=== PATIENT | female | born 1980 | race Caucasian/White ===

== ENCOUNTER 2022-12-22 04:59 | Emergency (ER) | payer OTHER, SELFPAY ==
[~2022-12-22] VITALS: Ht 152.4 cm; Wt 93.0 kg
[2022-12-22] MEDS ORDERED: ACETAMINOPHEN TAB 650MG DOSE (2X325MG) PO ONE (05:30)
[2022-12-22] MEDS ORDERED: IPRATROPIUM 0.5MG/ALBUTEROL 2.5MG INH SOL UD 3ML (DUONEB) NEB ONE (06:35)
[2022-12-22 07:05] LABS: BASO # 0.1 10^3/uL (0.0-0.2); BASO % 0.2 % (0.0-1.0); HEMATOCRIT 42.9 % (36.0-47.0); HEMOGLOBIN 14.3 g/dl (12.0-15.5); LYMPH # 1.9 10^3/uL (1.5-5.0); LYMPH % 8.4 % (24.0-44.0); MEAN CORPUSCULAR HEMOGLOBIN 28.4 pg (27.0-33.0); MEAN CORPUSCULAR HGB CONC 33.3 g/dl (32.0-36.5); MEAN CORPUSCULAR VOLUME 85.1 fl (80.0-96.0); MONO # 1.2 10^3/uL (0.0-0.8); MONO % 5.5 % (2.0-8.0); NEUTROPHILS # 19.2 10^3/uL (1.5-8.5); NEUTROPHILS % 85.1 % (36.0-66.0); RED BLOOD COUNT 5.04 10^6/uL (4.00-5.40); WHITE BLOOD COUNT 22.6 10^3/uL (4.0-10.0)
[2022-12-22 07:24] LABS: PLATELET COUNT, AUTOMATED 43 10^3/uL (150-450)
[2022-12-22 07:32] LABS: BARBITURATES URINE NEGATIVE (NEGATIVE); BENZODIAZEPINES URINE NEGATIVE (NEGATIVE); CANNABINOIDS URINE NEGATIVE (NEGATIVE); COCAINE METABOLITE URINE NEGATIVE (NEGATIVE); METHADONE URINE NEGATIVE (NEGATIVE); OPIATES URINE NEGATIVE (NEGATIVE); PHENCYCLIDINE URINE NEGATIVE (NEGATIVE)
[2022-12-22 07:34] LABS: ETHYL ALCOHOL (ETHANOL) < 0.003 % (0.000-0.010)
[2022-12-22 07:36] LABS: ALBUMIN 3.6 G/DL (3.2-5.2); ALKALINE PHOSPHATASE 89 U/L (46-116); ALT/SGPT 23 U/L (7.0-40); AST/SGOT 26 U/L (<34); BILIRUBIN,DIRECT 0.3 MG/DL (<0.4); BILIRUBIN,TOTAL 0.8 MG/DL (0.3-1.2); BLOOD UREA NITROGEN 26 MG/DL (9-23); CALCIUM LEVEL 9.6 MG/DL (8.5-10.1); CARBON DIOXIDE LEVEL 22 MMOL/L (20-31); CHLORIDE LEVEL 99 MMOL/L (98-107); CPK CREATINE PHOSPHOKINASE 126 U/L (34-145); CREATININE FOR GFR 1.54 MG/DL (0.55-1.30); GLOMERULAR FILTRATION RATE 39.3 (>58); GLUCOSE, FASTING 114 MG/DL (60-100); SALICYLATE LEVEL < 3.0 MG/DL (<30); SODIUM LEVEL 129 MMOL/L (136-145); TOTAL PROTEIN 8.6 G/DL (5.7-8.2)
[2022-12-22 07:39] LABS: THYROID STIMULATING HORMONE 2.165 uIU/ML (0.55-4.78)
[2022-12-22 07:40] LABS: HCG, SERUM QUALITATIVE NEGATIVE (NEGATIVE)
[2022-12-22 07:41] LABS: AMPHETAMINES LEVEL URINE POSITIVE (NEGATIVE)
[2022-12-22] MEDS ORDERED: NS 1,000 ML IV SCH (09:10)
[2022-12-22 15:15] LABS: GC DNA AMPLIFICATION NEGATIVE (NEGATIVE)
[2022-12-22] MEDS ORDERED: NITROFURANTOIN (MACROBID) 100 MG CAP PO ONE (15:20)
[2022-12-22] MEDS ORDERED: NITR1CAP11 PO (15:23)
[2022-12-22 15:35] VITALS: BP 111/74; TEMP 98.6; O2SAT 97
== END 2022-12-22 15:47 | disposition home or self-care (01) ==
LOC: M ED 04:59 → EDBD 04:59 → M ED 15:47
DX: N39.0 Urinary tract infection, site not specified (principal); J06.9 Acute upper respiratory infection, unspecified; F19.10 Other psychoactive substance abuse, uncomplicated; B20 Human immunodeficiency virus [HIV] disease; B19.10 Unspecified viral hepatitis B without hepatic coma; B19.20 Unspecified viral hepatitis C without hepatic coma; F17.200 Nicotine dependence, unspecified, uncomplicated; Z88.0 Allergy status to penicillin

== ENCOUNTER 2023-01-15 20:04 | Emergency (ER) | payer SELFPAY ==
[~2023-01-15] VITALS: Ht 165.1 cm; Wt 89.2 kg
[~2023-01-15 20:04] MED LIST: NITR1CAP11 PO
[2023-01-15 21:11] LABS: HEMATOCRIT 41.6 % (36.0-47.0); HEMOGLOBIN 13.3 g/dl (12.0-15.5); MEAN CORPUSCULAR HEMOGLOBIN 27.9 pg (27.0-33.0); MEAN CORPUSCULAR VOLUME 87.4 fl (80.0-96.0); RED BLOOD COUNT 4.76 10^6/uL (4.00-5.40); WHITE BLOOD COUNT 4.3 10^3/uL (4.0-10.0)
[2023-01-15 21:14] LABS: PLATELET COUNT, AUTOMATED 36 10^3/uL (150-450)
[2023-01-15 21:26] LABS: ATYPICAL LYMPH 5 % (0-5); BASOPHILS 1 % (0-1); EOSINOPHILS 1 % (0-3); LYMPHOCYTES 13 % (16-44); MONOCYTES 7 % (0-5); NEUTROPHILS 73 % (28-66); PLATELET ESTIMATE NORMAL (NORMAL)
[2023-01-15 21:28] LABS: ERYTHROCYTE SEDIMENTATION RATE 103 mm/hr (0-20)
[2023-01-15 21:29] LABS: BLOOD UREA NITROGEN 10 MG/DL (9-23); CALCIUM LEVEL 9.3 MG/DL (8.5-10.1); CARBON DIOXIDE LEVEL 26 MMOL/L (20-31); CHLORIDE LEVEL 103 MMOL/L (98-107); CREATININE FOR GFR 1.12 MG/DL (0.55-1.30); GLOMERULAR FILTRATION RATE 56.8 (>58); GLUCOSE, FASTING 128 MG/DL (60-100); POTASSIUM SERUM 3.8 MMOL/L (3.5-5.1); SODIUM LEVEL 138 MMOL/L (136-145)
[2023-01-16 00:03] VITALS: TEMP 98.8
[2023-01-16 03:13] LABS: HEPATITIS B SURFACE ANTIGEN NEGATIVE (NEGATIVE)
[2023-01-16 03:33] LABS: HEPATITIS B CORE ANTIBODY IGM NEGATIVE (NEGATIVE)
[2023-01-16 04:33] VITALS: O2SAT 100
[2023-01-16 04:51] VITALS: BP 145/96
[2023-01-16 05:23] LABS: APPEARANCE, URINE HAZY (CLEAR); BACTERIA, URINE AUTO 1+ (NEGATIVE); BILIRUBIN, URINE AUTO NEGATIVE (NEGATIVE); BLOOD, URINE BLOOD NEGATIVE (NEGATIVE); COLOR, URINE YELLOW (YELLOW); GLUCOSE, URINE (UA) AUTO NEGATIVE (NEGATIVE); KETONE, URINE AUTO NEGATIVE (NEGATIVE); LEUKOCYTE ESTERASE, URINE AUTO NEGATIVE (NEGATIVE); MUCUS, URINE SMALL (NEGATIVE); NITRITE, URINE AUTO POSITIVE (NEGATIVE); PROTEIN, URINE AUTO 1+ mg/dL (NEGATIVE); RBC, URINE AUTO 1 /HPF (0-3); SPECIFIC GRAVITY URINE AUTO 1.018 (1.002-1.035); SQUAMOUS EPITHELIAL CELL UR AU 4 /HPF (0-6); UROBILINOGEN, URINE AUTO 0.2 mg/dL (0.0-2.0); WBC, URINE AUTO 3 /HPF (0-3)
[2023-01-16 05:59] LABS: BARBITURATES URINE NEGATIVE (NEGATIVE)
[2023-01-16 06:00] LABS: BENZODIAZEPINES URINE NEGATIVE (NEGATIVE); CANNABINOIDS URINE NEGATIVE (NEGATIVE); COCAINE METABOLITE URINE NEGATIVE (NEGATIVE); METHADONE URINE NEGATIVE (NEGATIVE); OPIATES URINE NEGATIVE (NEGATIVE); PHENCYCLIDINE URINE NEGATIVE (NEGATIVE)
[2023-01-16 06:03] LABS: AMPHETAMINES LEVEL URINE POSITIVE (NEGATIVE)
[2023-01-16 12:04] LABS: HEPATITIS C VIRUS ABY INDEX > 11.00 INDEX (<0.8)
== END 2023-01-16 06:26 | disposition home or self-care (01) ==
LOC: M ED 20:04
DX: D69.6 Thrombocytopenia, unspecified (principal); B20 Human immunodeficiency virus [HIV] disease; Z88.0 Allergy status to penicillin

== ENCOUNTER 2023-01-29 00:53 | Emergency (ER) | payer MEDICAID, SELFPAY ==
[~2023-01-29] VITALS: Ht 165.1 cm; Wt 87.0 kg
[2023-01-29 00:54] VITALS: TEMP 98.7
[2023-01-29 08:18] VITALS: BP 136/85; O2SAT 98
== END 2023-01-29 08:30 | disposition home or self-care (01) ==
LOC: M ED 00:53
DX: T74.11XA Adult physical abuse, confirmed, initial encounter (principal); Y04.0XXA Assault by unarmed brawl or fight, initial encounter; Y92.009 Unspecified place in unspecified non-institutional (private) residence as the place of occurrence of the external cause; Y93.89 Activity, other specified; Y99.8 Other external cause status; D69.6 Thrombocytopenia, unspecified; B20 Human immunodeficiency virus [HIV] disease; F19.10 Other psychoactive substance abuse, uncomplicated; B19.20 Unspecified viral hepatitis C without hepatic coma; F17.200 Nicotine dependence, unspecified, uncomplicated

== ENCOUNTER 2023-02-15 05:53 | Inpatient (IN) | payer SELFPAY ==
[~2023-02-15] VITALS: Ht 165.1 cm; Wt 86.9 kg
[2023-02-15] MEDS ORDERED: NS 1,000 ML IV ONE (06:00)
[2023-02-15 07:10] LABS: BASO % 0.2 % (0.0-1.0); EOS # 0.1 10^3/uL (0.0-0.5); HEMATOCRIT 39.8 % (36.0-47.0); HEMOGLOBIN 12.9 g/dl (12.0-15.5); LYMPH # 0.7 10^3/uL (1.5-5.0); LYMPH % 16.7 % (24.0-44.0); MEAN CORPUSCULAR HEMOGLOBIN 27.3 pg (27.0-33.0); MEAN CORPUSCULAR HGB CONC 32.4 g/dl (32.0-36.5); MEAN CORPUSCULAR VOLUME 84.3 fl (80.0-96.0); MONO # 0.5 10^3/uL (0.0-0.8); MONO % 10.6 % (2.0-8.0); RED BLOOD COUNT 4.72 10^6/uL (4.00-5.40); WHITE BLOOD COUNT 4.4 10^3/uL (4.0-10.0)
[2023-02-15 07:13] LABS: PLATELET COUNT, AUTOMATED 32 10^3/uL (150-450)
[2023-02-15 07:22] LABS: ETHYL ALCOHOL (ETHANOL) < 0.003 % (0.000-0.010)
[2023-02-15 07:24] LABS: ALBUMIN 3.6 G/DL (3.2-5.2); ALKALINE PHOSPHATASE 105 U/L (46-116); ALT/SGPT 123 U/L (7.0-40); AST/SGOT 77 U/L (<34); BILIRUBIN,DIRECT 0.1 MG/DL (<0.4); BILIRUBIN,TOTAL 0.4 MG/DL (0.3-1.2); BLOOD UREA NITROGEN 17 MG/DL (9-23); CALCIUM LEVEL 8.8 MG/DL (8.5-10.1); CARBON DIOXIDE LEVEL 24 MMOL/L (20-31); CHLORIDE LEVEL 106 MMOL/L (98-107); CREATININE FOR GFR 0.85 MG/DL (0.55-1.30); GLOMERULAR FILTRATION RATE > 60.0 (>58); GLUCOSE, FASTING 100 MG/DL (60-100); POTASSIUM SERUM 3.6 MMOL/L (3.5-5.1); SALICYLATE LEVEL < 3.0 MG/DL (<30); SODIUM LEVEL 144 MMOL/L (136-145)
[2023-02-15 07:25] LABS: ACETAMINOPHEN LEVEL < 2.0 UG/ML (10.0-20.0)
[2023-02-15 07:27] LABS: THYROID STIMULATING HORMONE 0.947 uIU/ML (0.55-4.78)
[2023-02-15 07:28] LABS: CPK CREATINE PHOSPHOKINASE 142 U/L (34-145)
[2023-02-15 07:34] LABS: HCG, SERUM QUALITATIVE NEGATIVE (NEGATIVE)
[2023-02-15 09:18] LABS: VENOUS PH 7.351 UNITS (7.330-7.430)
[2023-02-15 09:19] LABS: VENOUS BASE EXCESS -4.9 (-2.0-2.0); VENOUS HCO3 20.1 MMOL/L (23.0-27.0); VENOUS O2 SATURATION 93.2 % (60.0-80.0); VENOUS PARTIAL PRESSURE CO2 37.2 mmHg (38.0-50.0); VENOUS PARTIAL PRESSURE O2 72.7 mmHg (30.0-50.0); VENOUS STANDARD HCO3 20.4 MMOL/L; VENOUS TOTAL CO2 21.3 MMOL/L (24.0-28.0)
[2023-02-15 09:33] LABS: BARBITURATES URINE NEGATIVE (NEGATIVE)
[2023-02-15 09:34] LABS: BENZODIAZEPINES URINE NEGATIVE (NEGATIVE); CANNABINOIDS URINE NEGATIVE (NEGATIVE); COCAINE METABOLITE URINE NEGATIVE (NEGATIVE); METHADONE URINE NEGATIVE (NEGATIVE); OPIATES URINE NEGATIVE (NEGATIVE); PHENCYCLIDINE URINE NEGATIVE (NEGATIVE)
[2023-02-15 09:36] LABS: AMPHETAMINES LEVEL URINE POSITIVE (NEGATIVE)
[2023-02-15 09:47] LABS: LIPASE 35 U/L (12-53)
[2023-02-15] MEDS ORDERED: LOSARTAN 50MG TABLET PO ONE (10:35)
[2023-02-15 14:10] LABS: AMYLASE 72 U/L (30-118)
[2023-02-15] MEDS ORDERED: BICT1TAB2 PO (18:51)
[2023-02-15] MEDS ORDERED: BIKT1TAB PO (23:53)
[2023-02-15] MEDS ORDERED: HOME MED LIST COMPLETE! XX SCH (23:55)
[2023-02-15] MEDS ORDERED: STRETAB4 PO (23:57)
[2023-02-15] MEDS ORDERED: VITMTA PO (23:57)
[2023-02-15] MEDS ORDERED: C 50TAB PO (23:57)
[2023-02-16] MEDS ORDERED: MOM 30ML SUSPENSION UDC PO PRN (13:10)
[2023-02-16] MEDS ORDERED: MAALOX 30 ML SUSP *UDC PO PRN (13:10)
[2023-02-16] MEDS ORDERED: IBUPROFEN 400MG TAB PO PRN (13:10)
[2023-02-16] MEDS ORDERED: ACETAMINOPHEN TAB 650MG DOSE (2X325MG) PO PRN (13:10)
[2023-02-16] MEDS: OLANZapine ORAL DISINTEGRATING TAB 5MG PO PRN (16:53)
[2023-02-16] MEDS: traZODone 50 MG TAB PO PRN (20:23)
[2023-02-16] MEDS: diphenhydrAMINE 25MG CAP PO PRN (20:23)
[2023-02-17 07:05] VITALS: BP 109/67; TEMP 97.3; O2SAT 96
[2023-02-17] MEDS: NICOTINE 21MG/24HR 1 EA TRANSDERMAL TD SCH (12:14)
[2023-02-17] MEDS: GABAPENTIN 100 MG CAP PO PRN (15:42)
[2023-02-17] MEDS: diphenhydrAMINE 25MG CAP PO PRN (16:59)
[2023-02-17] MEDS: OLANZapine ORAL DISINTEGRATING TAB 5MG PO PRN (16:59)
[2023-02-17 18:42] VITALS: BP 142/80; TEMP 98.3; O2SAT 100
[2023-02-17] MEDS: traZODone 50 MG TAB PO PRN (20:51)
[2023-02-17] MEDS: BENZTROPINE 2 MG TAB PO SCH (20:51)
[2023-02-18 06:28] VITALS: BP 142/97; TEMP 97.8; O2SAT 98
[2023-02-18] MEDS: NICOTINE 21MG/24HR 1 EA TRANSDERMAL TD SCH (12:29)
[2023-02-18] MEDS: BENZTROPINE 2 MG TAB PO SCH ×2 (12:29→20:17)
[2023-02-18] MEDS: GABAPENTIN 100 MG CAP PO PRN ×2 (13:13→21:45)
[2023-02-18] MEDS ORDERED: NICOTINE POLACRILEX 2 MG GUM PO PRN (14:20)
[2023-02-18] MEDS: diphenhydrAMINE 25MG CAP PO PRN (16:40)
[2023-02-18] MEDS: OLANZapine ORAL DISINTEGRATING TAB 5MG PO PRN (16:40)
[2023-02-18 20:33] VITALS: BP 139/85; TEMP 97.4
[2023-02-19 06:09] VITALS: BP 118/71; TEMP 97.5; O2SAT 99
[2023-02-19 07:42] VITALS: BP 191/95; TEMP 97.7; O2SAT 95
[2023-02-19 07:53] VITALS: BP 156/98
[2023-02-19] MEDS: NICOTINE 21MG/24HR 1 EA TRANSDERMAL TD SCH (10:11)
[2023-02-19] MEDS: BENZTROPINE 2 MG TAB PO SCH ×2 (10:12→20:18)
[2023-02-19] MEDS: amLODIPine 5 MG TAB PO SCH (10:12)
[2023-02-19] MEDS: GABAPENTIN 100 MG CAP PO PRN (12:59)
[2023-02-19 16:10] VITALS: BP 131/98; TEMP 98; O2SAT 98
[2023-02-19 19:14] LABS: ALBUMIN 3.5 G/DL (3.2-5.2); ALKALINE PHOSPHATASE 126 U/L (46-116); ALT/SGPT 158 U/L (7.0-40); AST/SGOT 107 U/L (<34); BILIRUBIN,TOTAL 0.2 MG/DL (0.3-1.2); BLOOD UREA NITROGEN 17 MG/DL (9-23); CALCIUM LEVEL 9.5 MG/DL (8.5-10.1); CARBON DIOXIDE LEVEL 28 MMOL/L (20-31); CHLORIDE LEVEL 104 MMOL/L (98-107); CREATININE FOR GFR 0.84 MG/DL (0.55-1.30); GLOMERULAR FILTRATION RATE > 60.0 (>58); GLUCOSE, FASTING 154 MG/DL (60-100); POTASSIUM SERUM 4.3 MMOL/L (3.5-5.1); SODIUM LEVEL 140 MMOL/L (136-145); TOTAL PROTEIN 8.2 G/DL (5.7-8.2)
[2023-02-19] MEDS: PRAZOSIN 1 MG CAP PO SCH (20:18)
[2023-02-19] MEDS: GABAPENTIN 100 MG CAP PO SCH (20:18)
[2023-02-20] MEDS: GABAPENTIN 100 MG CAP PO SCH ×3 (10:07→21:33)
[2023-02-20] MEDS: amLODIPine 5 MG TAB PO SCH (10:09)
[2023-02-20] MEDS: NICOTINE 21MG/24HR 1 EA TRANSDERMAL TD SCH (10:10)
[2023-02-20] MEDS: CitaloPRAM (CeleXA) 20 MG TAB PO SCH (10:10)
[2023-02-20] MEDS: ATOMOXETINE HCL 40 MG CAP (STRATTERA) PO SCH (10:10)
[2023-02-20] MEDS: BENZTROPINE 2 MG TAB PO SCH ×2 (10:10→21:33)
[2023-02-20] MEDS: CEPACOL LOZENGE PO PRN (14:46)
[2023-02-20 17:11] VITALS: BP 121/87; TEMP 96.7
[2023-02-20] MEDS: OLANZapine ORAL DISINTEGRATING TAB 5MG PO PRN (18:01)
[2023-02-20] MEDS: PRAZOSIN 1 MG CAP PO SCH (21:33)
[2023-02-21 06:54] VITALS: BP 119/68; TEMP 97.9; O2SAT 98
[2023-02-21] MEDS: NICOTINE 21MG/24HR 1 EA TRANSDERMAL TD SCH (09:00)
[2023-02-21] MEDS: ATOMOXETINE HCL 40 MG CAP (STRATTERA) PO SCH (09:02)
[2023-02-21] MEDS: GABAPENTIN 100 MG CAP PO SCH ×3 (09:02→21:04)
[2023-02-21] MEDS: CitaloPRAM (CeleXA) 20 MG TAB PO SCH (09:02)
[2023-02-21] MEDS: BENZTROPINE 2 MG TAB PO SCH ×2 (09:02→21:05)
[2023-02-21] MEDS: amLODIPine 5 MG TAB PO SCH (09:02)
[2023-02-21 21:02] VITALS: BP 129/75
[2023-02-21 21:04] VITALS: BP 129/75
[2023-02-21] MEDS: PRAZOSIN 1 MG CAP PO SCH (21:04)
[2023-02-21] MEDS: CEPACOL LOZENGE PO PRN (21:05)
[2023-02-22 06:02] VITALS: BP 119/64; TEMP 98.5; O2SAT 98
[2023-02-22] MEDS: amLODIPine 5 MG TAB PO SCH (07:37)
[2023-02-22] MEDS: GABAPENTIN 100 MG CAP PO SCH ×3 (07:40→21:00)
[2023-02-22] MEDS: CitaloPRAM (CeleXA) 20 MG TAB PO SCH (07:40)
[2023-02-22] MEDS: ATOMOXETINE HCL 40 MG CAP (STRATTERA) PO SCH (07:40)
[2023-02-22] MEDS: BENZTROPINE 2 MG TAB PO SCH ×2 (07:40→21:00)
[2023-02-22] MEDS: NICOTINE 21MG/24HR 1 EA TRANSDERMAL TD SCH (07:40)
[2023-02-22] MEDS: CEPACOL LOZENGE PO PRN ×2 (10:50→15:18)
[2023-02-22 16:46] VITALS: BP 155/79; TEMP 97.7; O2SAT 98
[2023-02-22] MEDS: PRAZOSIN 1 MG CAP PO SCH (21:00)
[2023-02-23 06:14] VITALS: BP 138/85; TEMP 97.9; O2SAT 96
[2023-02-23] MEDS: amLODIPine 5 MG TAB PO SCH (08:02)
[2023-02-23] MEDS: BENZTROPINE 2 MG TAB PO SCH (08:04)
[2023-02-23] MEDS: GABAPENTIN 100 MG CAP PO SCH (08:05)
[2023-02-23] MEDS: NICOTINE 21MG/24HR 1 EA TRANSDERMAL TD SCH (09:00)
[2023-02-23] MEDS ORDERED: ATOMOXETINE HCL 40 MG CAP (STRATTERA) PO SCH (09:00)
[2023-02-23] MEDS ORDERED: CitaloPRAM (CeleXA) 20 MG TAB PO SCH (09:00)
[2023-02-23] MEDS ORDERED: MINI1CAP PO (11:29)
[2023-02-23] MEDS ORDERED: CELE20TA PO (11:29)
[2023-02-23] MEDS ORDERED: ATOM40CA9 PO (11:29)
[2023-02-23] MEDS ORDERED: GABA-1171 PO (11:29)
== END 2023-02-23 11:40 | disposition home or self-care (01) | DRG 754 ==
LOC: M ED 05:53 → EDBD 05:53 → M ED INP 02-16 13:07 → M PSY 02-16 15:30
PROVIDERS: ADMIT Student in an Organized Health Care Education/Training Program; ATTEND Psychiatry & Neurology Child & Adolescent Psychiatry
DX: F32.A Depression, unspecified (principal); B20 Human immunodeficiency virus [HIV] disease; F15.24 Other stimulant dependence with stimulant-induced mood disorder; F90.9 Attention-deficit hyperactivity disorder, unspecified type; I10 Essential (primary) hypertension; F41.0 Panic disorder [episodic paroxysmal anxiety]; M25.511 Pain in right shoulder; F43.10 Post-traumatic stress disorder, unspecified; F11.10 Opioid abuse, uncomplicated; M25.551 Pain in right hip; T37.5X2A Poisoning by antiviral drugs, intentional self-harm, initial encounter; F17.200 Nicotine dependence, unspecified, uncomplicated; F16.10 Hallucinogen abuse, uncomplicated; Z88.0 Allergy status to penicillin; Z79.899 Other long term (current) drug therapy

== ENCOUNTER 2023-02-26 22:48 | Emergency (ER) | payer SELFPAY ==
[~2023-02-26] VITALS: Ht 165.1 cm; Wt 96.8 kg
[~2023-02-26 22:48] MED LIST changes: +ATOM40CA9 PO; +BICT1TAB2 PO; +BIKT1TAB PO; +C 50TAB PO; +CELE20TA PO; +GABA-1171 PO; +MINI1CAP PO; +STRETAB4 PO; +VITMTA PO
[2023-02-26 23:25] VITALS: TEMP 98.8
[2023-02-26] MEDS ORDERED: MORPHINE 4 MG/ML 1ML VIAL IV ONE (23:35)
[2023-02-26 23:55] LABS: HEMATOCRIT 36.4 % (36.0-47.0); HEMOGLOBIN 11.8 g/dl (12.0-15.5); MEAN CORPUSCULAR HGB CONC 32.4 g/dl (32.0-36.5); MEAN CORPUSCULAR VOLUME 86.3 fl (80.0-96.0); RED BLOOD COUNT 4.22 10^6/uL (4.00-5.40); WHITE BLOOD COUNT 5.2 10^3/uL (4.0-10.0)
[2023-02-27 00:04] LABS: ETHYL ALCOHOL (ETHANOL) < 0.003 % (0.000-0.010); PLATELET COUNT, AUTOMATED 27 10^3/uL (150-450)
[2023-02-27 00:06] LABS: ACETAMINOPHEN LEVEL < 2.0 UG/ML (10.0-20.0); ALBUMIN 3.3 G/DL (3.2-5.2); ALKALINE PHOSPHATASE 107 U/L (46-116); ALT/SGPT 276 U/L (7.0-40); AST/SGOT 216 U/L (<34); BILIRUBIN,DIRECT 0.2 MG/DL (<0.4); BILIRUBIN,TOTAL 0.5 MG/DL (0.3-1.2); BLOOD UREA NITROGEN 20 MG/DL (9-23); CALCIUM LEVEL 8.7 MG/DL (8.5-10.1); CARBON DIOXIDE LEVEL 24 MMOL/L (20-31); CHLORIDE LEVEL 104 MMOL/L (98-107); CREATININE FOR GFR 0.86 MG/DL (0.55-1.30); GLOMERULAR FILTRATION RATE > 60.0 (>58); GLUCOSE, FASTING 135 MG/DL (60-100); POTASSIUM SERUM 3.8 MMOL/L (3.5-5.1); SALICYLATE LEVEL < 3.0 MG/DL (<30); SODIUM LEVEL 139 MMOL/L (136-145); TOTAL PROTEIN 7.4 G/DL (5.7-8.2)
[2023-02-27 00:08] LABS: THYROID STIMULATING HORMONE 0.904 uIU/ML (0.55-4.78)
[2023-02-27 00:09] LABS: HCG, SERUM QUALITATIVE NEGATIVE (NEGATIVE)
[2023-02-27 00:19] LABS: CPK CREATINE PHOSPHOKINASE 241 U/L (34-145)
[2023-02-27] MEDS ORDERED: NS 1,000 ML IV ONE ×2 (02:10→07:30)
[2023-02-27] MEDS ORDERED: MED REC IN PROGRESS XX SCH (08:25)
[2023-02-27] MEDS ORDERED: HOME MED LIST COMPLETE! XX SCH (08:45)
[2023-02-27 11:30] VITALS: BP 91/50; O2SAT 98
== END 2023-02-27 12:15 | disposition home or self-care (01) ==
LOC: M ED 22:48 → EDBD 22:48 → M ED 02-27 12:15
DX: S09.90XA Unspecified injury of head, initial encounter (principal); S06.0X0A Concussion without loss of consciousness, initial encounter; S00.93XA Contusion of unspecified part of head, initial encounter; F19.20 Other psychoactive substance dependence, uncomplicated; Y04.8XXA Assault by other bodily force, initial encounter; B20 Human immunodeficiency virus [HIV] disease; F32.A Depression, unspecified; F43.10 Post-traumatic stress disorder, unspecified; F90.9 Attention-deficit hyperactivity disorder, unspecified type; Z79.899 Other long term (current) drug therapy; Z88.0 Allergy status to penicillin

== ENCOUNTER 2023-03-03 09:18 | Emergency (ER) | payer SELFPAY ==
[~2023-03-03] VITALS: Ht 165.1 cm; Wt 88.1 kg
[2023-03-03 09:20] VITALS: BP 155/89; TEMP 98.2; O2SAT 99
[2023-03-03 12:54] LABS: HEMATOCRIT 39.1 % (36.0-47.0); HEMOGLOBIN 12.3 g/dl (12.0-15.5); MEAN CORPUSCULAR HEMOGLOBIN 27.6 pg (27.0-33.0); MEAN CORPUSCULAR HGB CONC 31.5 g/dl (32.0-36.5); MEAN CORPUSCULAR VOLUME 87.9 fl (80.0-96.0); RED BLOOD COUNT 4.45 10^6/uL (4.00-5.40); WHITE BLOOD COUNT 5.4 10^3/uL (4.0-10.0)
[2023-03-03 12:58] LABS: PLATELET COUNT, AUTOMATED 76 10^3/uL (150-450)
== END 2023-03-03 13:51 | disposition home or self-care (01) ==
LOC: M ED 09:18
DX: Z04.71 Encounter for examination and observation following alleged adult physical abuse (principal); D69.6 Thrombocytopenia, unspecified; F19.10 Other psychoactive substance abuse, uncomplicated; Z88.0 Allergy status to penicillin; Z79.899 Other long term (current) drug therapy

== ENCOUNTER 2023-04-19 18:51 | Inpatient (IN) | payer MEDICARE, SELFPAY ==
[~2023-04-19] VITALS: Ht 165.1 cm; Wt 87.5 kg
[2023-04-19 20:29] LABS: HEMATOCRIT 39.4 % (36.0-47.0); HEMOGLOBIN 13.3 g/dl (12.0-15.5); MEAN CORPUSCULAR HEMOGLOBIN 28.6 pg (27.0-33.0); MEAN CORPUSCULAR HGB CONC 33.8 g/dl (32.0-36.5); MEAN CORPUSCULAR VOLUME 84.7 fl (80.0-96.0); PLATELET COUNT, AUTOMATED 34 10^3/uL (150-450); RED BLOOD COUNT 4.65 10^6/uL (4.00-5.40)
[2023-04-19 20:51] LABS: ETHYL ALCOHOL (ETHANOL) < 0.003 % (0.000-0.010)
[2023-04-19 20:52] LABS: HCG, SERUM QUALITATIVE NEGATIVE (NEGATIVE)
[2023-04-19 20:53] LABS: ALBUMIN 3.2 G/DL (3.2-5.2); ALKALINE PHOSPHATASE 84 U/L (46-116); ALT/SGPT 34 U/L (7.0-40); AST/SGOT 41 U/L (<34); BILIRUBIN,DIRECT 0.1 MG/DL (<0.4); BILIRUBIN,TOTAL 0.2 MG/DL (0.3-1.2); BLOOD UREA NITROGEN 11 MG/DL (9-23); CALCIUM LEVEL 8.9 MG/DL (8.5-10.1); CARBON DIOXIDE LEVEL 27 MMOL/L (20-31); CHLORIDE LEVEL 106 MMOL/L (98-107); CREATININE FOR GFR 0.77 MG/DL (0.55-1.30); GLOMERULAR FILTRATION RATE > 60.0 (>58); GLUCOSE, FASTING 103 MG/DL (60-100); POTASSIUM SERUM 3.5 MMOL/L (3.5-5.1); SALICYLATE LEVEL < 3.0 MG/DL (<30); SODIUM LEVEL 141 MMOL/L (136-145); TOTAL PROTEIN 7.7 G/DL (5.7-8.2)
[2023-04-19 20:55] LABS: THYROID STIMULATING HORMONE 0.394 uIU/ML (0.55-4.78)
[2023-04-19] MEDS ORDERED: TRAZ-257 PO (22:39)
[2023-04-19] MEDS ORDERED: CELE20TA PO (22:39)
[2023-04-19] MEDS ORDERED: GABA-1171 PO (22:39)
[2023-04-19] MEDS ORDERED: PROM12.56 PO (22:39)
[2023-04-19] MEDS ORDERED: ATOM40CA2 PO (22:39)
[2023-04-19] MEDS ORDERED: LEVA45AE INH (22:39)
[2023-04-19] MEDS ORDERED: PRAZ1CAP PO (22:39)
[2023-04-19] MEDS ORDERED: HOME MED LIST COMPLETE! XX SCH ×2 (22:40→23:25)
[2023-04-19 23:22] LABS: AMPHETAMINES LEVEL URINE NEGATIVE (NEGATIVE); BARBITURATES URINE NEGATIVE (NEGATIVE); BENZODIAZEPINES URINE NEGATIVE (NEGATIVE); CANNABINOIDS URINE NEGATIVE (NEGATIVE); COCAINE METABOLITE URINE NEGATIVE (NEGATIVE); METHADONE URINE NEGATIVE (NEGATIVE); OPIATES URINE NEGATIVE (NEGATIVE); PHENCYCLIDINE URINE NEGATIVE (NEGATIVE)
[2023-04-19] MEDS ORDERED: ACETAMINOPHEN TAB 650MG DOSE (2X325MG) PO PRN (23:45)
[2023-04-19] MEDS ORDERED: traZODone 50 MG TAB PO PRN (23:45)
[2023-04-19] MEDS ORDERED: diphenhydrAMINE 25MG CAP PO PRN (23:45)
[2023-04-19] MEDS ORDERED: MOM 30ML SUSPENSION UDC PO PRN (23:45)
[2023-04-20 04:00] VITALS: BP 134/95; TEMP 97.2; O2SAT 99
[2023-04-20] MEDS: NICOTINE 21MG/24HR 1 EA TRANSDERMAL TD SCH (09:00)
[2023-04-20] MEDS ORDERED: BIKTARVY PO SCH (09:00)
[2023-04-20] MEDS ORDERED: GABAPENTIN 100 MG CAP PO SCH (09:00)
[2023-04-20] MEDS ORDERED: PROMETHAZINE 25 MG TAB PO PRN (10:15)
[2023-04-20] MEDS ORDERED: traZODone 100 MG TAB PO PRN (10:15)
[2023-04-20] MEDS ORDERED: LEVALBUTEROL HFA 45MCG/ACT 15GM INHALER INH PRN (10:15)
[2023-04-20] MEDS ORDERED: GABAPENTIN 300 MG CAP PO SCH (10:33)
[2023-04-20] MEDS: GABAPENTIN 300 MG CAP PO SCH ×3 (11:14→21:40)
[2023-04-20] MEDS: ASCORBIC ACID 500 MG TAB PO SCH (11:15)
[2023-04-20] MEDS: MULTIVITAMINS/MINERALS THERAP 1 TAB PO SCH (11:15)
[2023-04-20] MEDS: CitaloPRAM (CeleXA) 20 MG TAB PO SCH (11:15)
[2023-04-20] MEDS: ATOMOXETINE HCL 40 MG CAP (STRATTERA) PO SCH (13:30)
[2023-04-20 16:32] VITALS: BP 133/89; TEMP 97.7; O2SAT 100
[2023-04-20] MEDS: PRAZOSIN 1 MG CAP PO SCH (21:00)
[2023-04-20] MEDS ORDERED: ARIPiprazole 2 MG TAB PO SCH (21:00)
[2023-04-21 06:46] LABS: EOS # 0.1 10^3/uL (0.0-0.5); EOS % 2.2 % (0.0-3.0); HEMATOCRIT 43.2 % (36.0-47.0); HEMOGLOBIN 14.1 g/dl (12.0-15.5); LYMPH # 0.8 10^3/uL (1.5-5.0); LYMPH % 18.5 % (24.0-44.0); MEAN CORPUSCULAR HEMOGLOBIN 28.1 pg (27.0-33.0); MEAN CORPUSCULAR HGB CONC 32.6 g/dl (32.0-36.5); MEAN CORPUSCULAR VOLUME 86.2 fl (80.0-96.0); MONO # 0.5 10^3/uL (0.0-0.8); NEUTROPHILS # 3.1 10^3/uL (1.5-8.5); NEUTROPHILS % 68.6 % (36.0-66.0); RED BLOOD COUNT 5.01 10^6/uL (4.00-5.40); WHITE BLOOD COUNT 4.5 10^3/uL (4.0-10.0)
[2023-04-21 06:48] LABS: PLATELET COUNT, AUTOMATED 41 10^3/uL (150-450)
[2023-04-21 07:13] LABS: CHOLESTEROL LEVEL 148 MG/DL (<200); CHOLESTEROL RISK RATIO 4.19 (<5); HDL CHOLESTEROL 35.3 MG/DL (>40); LDL CHOLESTEROL 80.5 MG/DL (<100); NON-HDL-C 112.7 MG/DL; TRIGLYCERIDES LEVEL 161 MG/DL (<150)
[2023-04-21] MEDS: NICOTINE 21MG/24HR 1 EA TRANSDERMAL TD SCH (09:00)
[2023-04-21] MEDS: CitaloPRAM (CeleXA) 20 MG TAB PO SCH (09:15)
[2023-04-21] MEDS: ATOMOXETINE HCL 40 MG CAP (STRATTERA) PO SCH (09:15)
[2023-04-21] MEDS: GABAPENTIN 300 MG CAP PO SCH ×3 (09:15→20:58)
[2023-04-21] MEDS: MULTIVITAMINS/MINERALS THERAP 1 TAB PO SCH (09:15)
[2023-04-21] MEDS: ASCORBIC ACID 500 MG TAB PO SCH (09:17)
[2023-04-21 10:30] LABS: HEPATITIS B CORE ANTIBODY IGM NEGATIVE (NEGATIVE)
[2023-04-21 11:14] LABS: HEPATITIS C VIRUS ABY INDEX > 11.00 INDEX (<0.8)
[2023-04-21 18:33] VITALS: BP 115/71; TEMP 97.6
[2023-04-21 19:39] LABS: GC DNA AMPLIFICATION NEGATIVE (NEGATIVE)
[2023-04-21] MEDS: BIKTARVY 50 MG/200 MG/25 MG TAB (PATIENT'S OWN MED) PO SCH (20:52)
[2023-04-21] MEDS: FLUCONAZOLE 50MG TABLET PO SCH (20:57)
[2023-04-21] MEDS: PRAZOSIN 1 MG CAP PO SCH (20:58)
[2023-04-22 06:09] VITALS: BP 109/75; TEMP 97.6; O2SAT 95
[2023-04-22 07:51] LABS: HEPATITIS B SURFACE ANTIBODY NEGATIVE (POSITIVE)
[2023-04-22] MEDS: NICOTINE 21MG/24HR 1 EA TRANSDERMAL TD SCH (09:00)
[2023-04-22] MEDS: ATOMOXETINE HCL 40 MG CAP (STRATTERA) PO SCH (09:24)
[2023-04-22] MEDS: GABAPENTIN 300 MG CAP PO SCH ×3 (09:24→20:35)
[2023-04-22] MEDS: CitaloPRAM (CeleXA) 20 MG TAB PO SCH (09:24)
[2023-04-22] MEDS: MULTIVITAMINS/MINERALS THERAP 1 TAB PO SCH (09:24)
[2023-04-22] MEDS: ASCORBIC ACID 500 MG TAB PO SCH (09:24)
[2023-04-22 16:47] VITALS: BP 124/82; TEMP 97.4; O2SAT 100
[2023-04-22 20:32] VITALS: BP 123/78
[2023-04-22] MEDS: BIKTARVY 50 MG/200 MG/25 MG TAB (PATIENT'S OWN MED) PO SCH (20:35)
[2023-04-22] MEDS: FLUCONAZOLE 50MG TABLET PO SCH (20:36)
[2023-04-22] MEDS: PRAZOSIN 1 MG CAP PO SCH (20:36)
[2023-04-23 06:41] VITALS: BP 90/52; TEMP 97.1; O2SAT 100
[2023-04-23] MEDS: NICOTINE 21MG/24HR 1 EA TRANSDERMAL TD SCH ×2 (09:00→15:38)
[2023-04-23] MEDS: GABAPENTIN 300 MG CAP PO SCH ×3 (09:10→21:34)
[2023-04-23] MEDS: ATOMOXETINE HCL 40 MG CAP (STRATTERA) PO SCH (09:10)
[2023-04-23] MEDS: CitaloPRAM (CeleXA) 20 MG TAB PO SCH (09:10)
[2023-04-23] MEDS: ASCORBIC ACID 500 MG TAB PO SCH (09:10)
[2023-04-23] MEDS: MULTIVITAMINS/MINERALS THERAP 1 TAB PO SCH (09:11)
[2023-04-23] MEDS: MAALOX 30 ML SUSP *UDC PO PRN ×2 (09:52→21:35)
[2023-04-23 16:27] VITALS: BP 129/66; TEMP 98.4; O2SAT 92
[2023-04-23] MEDS: PRAZOSIN 1 MG CAP PO SCH (21:00)
[2023-04-23] MEDS: BIKTARVY 50 MG/200 MG/25 MG TAB (PATIENT'S OWN MED) PO SCH (21:34)
[2023-04-23] MEDS: FLUCONAZOLE 50MG TABLET PO SCH (21:35)
[2023-04-24] MEDS: IBUPROFEN 400MG TAB PO PRN ×2 (01:51→16:58)
[2023-04-24 07:13] VITALS: BP 130/85; TEMP 97.5; O2SAT 100
[2023-04-24] MEDS: ASCORBIC ACID 500 MG TAB PO SCH (09:17)
[2023-04-24] MEDS: ATOMOXETINE HCL 40 MG CAP (STRATTERA) PO SCH (09:17)
[2023-04-24] MEDS: CitaloPRAM (CeleXA) 20 MG TAB PO SCH (09:17)
[2023-04-24] MEDS: MULTIVITAMINS/MINERALS THERAP 1 TAB PO SCH (09:17)
[2023-04-24] MEDS: NICOTINE 21MG/24HR 1 EA TRANSDERMAL TD SCH (09:17)
[2023-04-24] MEDS: GABAPENTIN 300 MG CAP PO SCH ×3 (09:17→22:26)
[2023-04-24 16:12] VITALS: BP 146/76; TEMP 98.3; O2SAT 97
[2023-04-24] MEDS: LORazepam 1 MG TAB PO PRN ×2 (16:57→23:24)
[2023-04-24] MEDS: PRAZOSIN 1 MG CAP PO SCH (21:00)
[2023-04-24] MEDS: BIKTARVY 50 MG/200 MG/25 MG TAB (PATIENT'S OWN MED) PO SCH (22:25)
[2023-04-24] MEDS: MAALOX 30 ML SUSP *UDC PO PRN (22:27)
[2023-04-24] MEDS: MICONAZOLE-7 VAGINAL 2% CREAM 47.7GM PV SCH (22:44)
[2023-04-25 06:56] VITALS: BP 139/90; TEMP 97.9; O2SAT 100
[2023-04-25 09:07] LABS: HEPATITIS A IgG TOTAL Positive (Negative)
[2023-04-25] MEDS: CitaloPRAM (CeleXA) 20 MG TAB PO SCH (10:07)
[2023-04-25] MEDS: ATOMOXETINE HCL 40 MG CAP (STRATTERA) PO SCH (10:07)
[2023-04-25] MEDS: MULTIVITAMINS/MINERALS THERAP 1 TAB PO SCH (10:07)
[2023-04-25] MEDS: ASCORBIC ACID 500 MG TAB PO SCH (10:07)
[2023-04-25] MEDS: GABAPENTIN 300 MG CAP PO SCH ×3 (10:07→20:34)
[2023-04-25] MEDS: NICOTINE 21MG/24HR 1 EA TRANSDERMAL TD SCH ×2 (10:08→16:12)
[2023-04-25 13:07] LABS: % CD8 Pos Lymph 66.4 % (12.0-35.5); %CD4 Pos Lymphs 5.2 % (30.8-58.5); ABS Eosinophils 0.1 x10E3/uL (0.0-0.4); ABS Lymphs 1.1 x10E3/uL (0.7-3.1); ABS Monocytes 0.3 x10E3/uL (0.1-0.9); ABS Neutophils 2.6 x10E3/uL (1.4-7.0); Abs CD4 Helper 57 /uL (359-1519); Abs CD8 Suppres 730 /uL (109-897); CD4/CD8 Ratio 0.08 (0.92-3.72); Eosinophils 2 % (Not Estab.); HCT 45.5 % (34.0-46.6); HGB 14.7 g/dL (11.1-15.9); HIV-1 RNA PCR QUANT 1 LC162545 230000 copies/mL (.); HIV-1 RNA PCR QUANT 2 LC162545 5.362 (.); Immature Grans 0 % (Not Estab.); Lymphocytes 26 % (Not Estab.); MCH 28.2 pg (26.6-33.0); MCHC 32.3 g/dL (31.5-35.7); MCV 87 fL (79-97); Monocytes 8 % (Not Estab.); Neutrophils 64 % (Not Estab.); Platelets 39 x10E3/uL (150-450); RBC 5.22 x10E6/uL (3.77-5.28); RDW 14.3 % (11.7-15.4); WBC 4.1 x10E3/uL (3.4-10.8)
[2023-04-25] MEDS: BACTRIM 160MG/800MG DS TAB PO SCH (16:12)
[2023-04-25 16:32] VITALS: BP 126/84; TEMP 97.6; O2SAT 97
[2023-04-25] MEDS: LORazepam 1 MG TAB PO PRN (17:49)
[2023-04-25] MEDS: PROPRANOLOL 10 MG TAB PO SCH (20:34)
[2023-04-25] MEDS: IBUPROFEN 400MG TAB PO PRN (20:35)
[2023-04-25] MEDS: PRAZOSIN 1 MG CAP PO SCH (20:36)
[2023-04-25] MEDS: BIKTARVY 50 MG/200 MG/25 MG TAB (PATIENT'S OWN MED) PO SCH (20:36)
[2023-04-25] MEDS ORDERED: ARIPiprazole 10 MG TAB PO SCH (21:00)
[2023-04-25] MEDS: MICONAZOLE-7 VAGINAL 2% CREAM 47.7GM PV SCH (23:55)
[2023-04-26 06:33] VITALS: BP 126/79; TEMP 97.5; O2SAT 100
[2023-04-26 08:05] VITALS: BP 147/84
[2023-04-26] MEDS: BACTRIM 160MG/800MG DS TAB PO SCH (08:05)
[2023-04-26] MEDS: ASCORBIC ACID 500 MG TAB PO SCH (08:05)
[2023-04-26] MEDS: GABAPENTIN 300 MG CAP PO SCH ×3 (08:07→21:10)
[2023-04-26] MEDS: PROPRANOLOL 10 MG TAB PO SCH ×2 (08:07→21:20)
[2023-04-26] MEDS: CitaloPRAM (CeleXA) 20 MG TAB PO SCH (08:07)
[2023-04-26] MEDS: MULTIVITAMINS/MINERALS THERAP 1 TAB PO SCH (08:07)
[2023-04-26] MEDS: NICOTINE 21MG/24HR 1 EA TRANSDERMAL TD SCH (08:08)
[2023-04-26] MEDS: ATOMOXETINE HCL 40 MG CAP (STRATTERA) PO SCH (08:08)
[2023-04-26] MEDS: LORazepam 1 MG TAB PO PRN ×2 (08:09→19:02)
[2023-04-26] MEDS ORDERED: HEPATITIS B VACCINE 20MCG/ML 1ML SYRINGE (ADULT DOSE) IM ONE (10:05)
[2023-04-26 18:02] VITALS: BP 137/84; TEMP 96.4; O2SAT 100
[2023-04-26] MEDS: PRAZOSIN 1 MG CAP PO SCH (21:00)
[2023-04-26] MEDS: OLANZapine 5 MG TAB PO SCH (21:10)
[2023-04-26] MEDS: BIKTARVY 50 MG/200 MG/25 MG TAB (PATIENT'S OWN MED) PO SCH (21:11)
[2023-04-26] MEDS: MICONAZOLE-7 VAGINAL 2% CREAM 47.7GM PV SCH (21:11)
[2023-04-27 06:18] VITALS: BP 115/65; TEMP 98.3; O2SAT 99
[2023-04-27] MEDS: NICOTINE 21MG/24HR 1 EA TRANSDERMAL TD SCH (09:00)
[2023-04-27] MEDS: ATOMOXETINE HCL 40 MG CAP (STRATTERA) PO SCH (09:51)
[2023-04-27] MEDS: ASCORBIC ACID 500 MG TAB PO SCH (09:51)
[2023-04-27] MEDS: MULTIVITAMINS/MINERALS THERAP 1 TAB PO SCH (09:51)
[2023-04-27] MEDS: BACTRIM 160MG/800MG DS TAB PO SCH (09:51)
[2023-04-27] MEDS: GABAPENTIN 300 MG CAP PO SCH ×3 (09:52→21:00)
[2023-04-27] MEDS: CitaloPRAM (CeleXA) 20 MG TAB PO SCH (09:57)
[2023-04-27] MEDS: PROPRANOLOL 10 MG TAB PO SCH ×2 (10:04→21:00)
[2023-04-27] MEDS: LORazepam 1 MG TAB PO PRN (13:55)
[2023-04-27] MEDS ORDERED: INFLUENZA QUADRIVALENT PF VACCINE 0.5ML SYRINGE IM.IMMUN ONE (14:00)
[2023-04-27 15:47] VITALS: BP 130/92; TEMP 97.3; O2SAT 100
[2023-04-27] MEDS: BIKTARVY 50 MG/200 MG/25 MG TAB (PATIENT'S OWN MED) PO SCH (21:00)
[2023-04-27] MEDS: MICONAZOLE-7 VAGINAL 2% CREAM 47.7GM PV SCH (21:00)
[2023-04-27] MEDS: PRAZOSIN 1 MG CAP PO SCH (21:00)
[2023-04-27] MEDS: OLANZapine 5 MG TAB PO SCH (21:00)
[2023-04-28 08:12] VITALS: BP 118/79
[2023-04-28] MEDS: ATOMOXETINE HCL 40 MG CAP (STRATTERA) PO SCH (08:12)
[2023-04-28] MEDS: PROPRANOLOL 10 MG TAB PO SCH (08:12)
[2023-04-28] MEDS: ASCORBIC ACID 500 MG TAB PO SCH (08:12)
[2023-04-28] MEDS: NICOTINE 21MG/24HR 1 EA TRANSDERMAL TD SCH (08:12)
[2023-04-28] MEDS: GABAPENTIN 300 MG CAP PO SCH (08:12)
[2023-04-28] MEDS: CitaloPRAM (CeleXA) 20 MG TAB PO SCH (08:12)
[2023-04-28] MEDS: BACTRIM 160MG/800MG DS TAB PO SCH (08:12)
[2023-04-28] MEDS: MULTIVITAMINS/MINERALS THERAP 1 TAB PO SCH (08:12)
[2023-04-28] MEDS: LORazepam 1 MG TAB PO PRN (11:20)
[2023-04-28] MEDS ORDERED: PROP10TA56 PO (11:45)
[2023-04-28] MEDS ORDERED: CELE20TA PO (11:45)
[2023-04-28] MEDS ORDERED: BACTDSTA PO (11:45)
[2023-04-28] MEDS ORDERED: OLAN1TAB16 PO (11:45)
[2023-04-28] MEDS ORDERED: NICO21PAT TD (11:45)
[2023-04-28] MEDS ORDERED: ZYPR5TAB31 PO (11:47)
[2023-04-28] MEDS ORDERED: HEPATITIS B VACCINE 20MCG/ML 1ML SYRINGE (ADULT DOSE) IM ONE (13:00)
== END 2023-04-28 12:05 | disposition home or self-care (01) | DRG 897 ==
LOC: M ED 18:51 → M ED INP 23:41 → M PSY 04-20 03:45
PROVIDERS: ADMIT Student in an Organized Health Care Education/Training Program; ATTEND Student in an Organized Health Care Education/Training Program
DX: F15.14 Other stimulant abuse with stimulant-induced mood disorder (principal); Z59.00 Homelessness unspecified; R45.851 Suicidal ideations; B20 Human immunodeficiency virus [HIV] disease; F32.9 Major depressive disorder, single episode, unspecified; F43.10 Post-traumatic stress disorder, unspecified; F16.11 Hallucinogen abuse, in remission; J45.909 Unspecified asthma, uncomplicated; F17.210 Nicotine dependence, cigarettes, uncomplicated; B18.2 Chronic viral hepatitis C; T43.595A Adverse effect of other antipsychotics and neuroleptics, initial encounter; D69.6 Thrombocytopenia, unspecified; K13.0 Diseases of lips; N76.0 Acute vaginitis; M25.512 Pain in left shoulder; G25.71 Drug induced akathisia; Z62.810 Personal history of physical and sexual abuse in childhood; Z91.414 Personal history of adult intimate partner abuse; Z91.51 Personal history of suicidal behavior; Z81.8 Family history of other mental and behavioral disorders; Z79.899 Other long term (current) drug therapy; Z88.0 Allergy status to penicillin

== ENCOUNTER 2023-05-03 03:24 | Emergency (ER) | payer MEDICARE ==
[~2023-05-03] VITALS: Ht 165.1 cm; Wt 82.7 kg
[~2023-05-03 03:24] MED LIST changes: +ATOM40CA2 PO; +BACTDSTA PO; +LEVA45AE INH; +NICO21PAT TD; +OLAN1TAB16 PO; +PRAZ1CAP PO; +PROM12.56 PO; +PROP10TA56 PO; +TRAZ-257 PO; +ZYPR5TAB31 PO
[2023-05-03 03:32] VITALS: BP 133/90; TEMP 99.1; O2SAT 100
== END 2023-05-03 04:20 | disposition left against medical advice (07) ==
LOC: M ED 03:24
DX: Z53.21 Procedure and treatment not carried out due to patient leaving prior to being seen by health care provider (principal)

== ENCOUNTER 2023-05-08 11:33 | Emergency (ER) | payer MEDICARE ==
[~2023-05-08] VITALS: Ht 165.1 cm; Wt 90.3 kg
[2023-05-08 11:34] VITALS: BP 133/96; TEMP 97.4; O2SAT 98
[2023-05-08 12:21] LABS: BASO % 0.4 % (0.0-1.0); EOS # 0.2 10^3/uL (0.0-0.5); EOS % 3.8 % (0.0-3.0); HEMOGLOBIN 13.2 g/dl (12.0-15.5); LYMPH # 1.1 10^3/uL (1.5-5.0); LYMPH % 19.4 % (24.0-44.0); MEAN CORPUSCULAR HEMOGLOBIN 28.7 pg (27.0-33.0); MONO # 0.5 10^3/uL (0.0-0.8); MONO % 9.3 % (2.0-8.0); NEUTROPHILS # 3.6 10^3/uL (1.5-8.5); NEUTROPHILS % 66.6 % (36.0-66.0); WHITE BLOOD COUNT 5.5 10^3/uL (4.0-10.0)
[2023-05-08 12:25] LABS: PLATELET COUNT, AUTOMATED 87 10^3/uL (150-450)
[2023-05-08 12:42] LABS: BLOOD UREA NITROGEN 16 MG/DL (9-23); CARBON DIOXIDE LEVEL 26 MMOL/L (20-31); CHLORIDE LEVEL 106 MMOL/L (98-107); CREATININE FOR GFR 0.77 MG/DL (0.55-1.30); GLOMERULAR FILTRATION RATE > 60.0 (>58); GLUCOSE, FASTING 95 MG/DL (60-100); POTASSIUM SERUM 4.5 MMOL/L (3.5-5.1); SODIUM LEVEL 141 MMOL/L (136-145)
== END 2023-05-08 13:44 | disposition left against medical advice (07) ==
LOC: M ED 11:33
DX: Z53.21 Procedure and treatment not carried out due to patient leaving prior to being seen by health care provider (principal)

== ENCOUNTER 2023-05-28 23:40 | Inpatient (IN) | payer MEDICARE ==
[~2023-05-28] VITALS: Ht 172.7 cm; Wt 93.5 kg
[2023-05-28] MEDS ORDERED: LORazepam 2 MG TAB PO STA (23:54)
[2023-05-29] MEDS ORDERED: diphenhydrAMINE 50MG/ML VIAL IM ONE
[2023-05-29] MEDS ORDERED: MIDAZOLAM INJ 2MG/2ML VIAL IM ONE
[2023-05-29] MEDS ORDERED: HALOPERIDOL 5MG/ML 1ML VIAL IM ONE
[2023-05-29 00:41] LABS: HEMATOCRIT 40.9 % (36.0-47.0); HEMOGLOBIN 13.4 g/dl (12.0-15.5); MEAN CORPUSCULAR HEMOGLOBIN 28.9 pg (27.0-33.0); MEAN CORPUSCULAR HGB CONC 32.8 g/dl (32.0-36.5); MEAN CORPUSCULAR VOLUME 88.3 fl (80.0-96.0); RED BLOOD COUNT 4.63 10^6/uL (4.00-5.40); WHITE BLOOD COUNT 7.5 10^3/uL (4.0-10.0)
[2023-05-29 00:43] LABS: PLATELET COUNT, AUTOMATED 68 10^3/uL (150-450)
[2023-05-29 00:47] LABS: ETHYL ALCOHOL (ETHANOL) < 0.003 % (0.000-0.010)
[2023-05-29 00:49] LABS: ALBUMIN 3.9 G/DL (3.2-5.2); ALKALINE PHOSPHATASE 83 U/L (46-116); ALT/SGPT 78 U/L (7.0-40); AST/SGOT 60 U/L (<34); BILIRUBIN,DIRECT 0.1 MG/DL (<0.4); BILIRUBIN,TOTAL 0.3 MG/DL (0.3-1.2); BLOOD UREA NITROGEN 11 MG/DL (9-23); CALCIUM LEVEL 9.3 MG/DL (8.5-10.1); CARBON DIOXIDE LEVEL 25 MMOL/L (20-31); CHLORIDE LEVEL 106 MMOL/L (98-107); CREATININE FOR GFR 0.81 MG/DL (0.55-1.30); GLOMERULAR FILTRATION RATE > 60.0 (>58); GLUCOSE, FASTING 93 MG/DL (60-100); POTASSIUM SERUM 3.6 MMOL/L (3.5-5.1); SALICYLATE LEVEL < 3.0 MG/DL (<30); SODIUM LEVEL 141 MMOL/L (136-145); TOTAL PROTEIN 8.6 G/DL (5.7-8.2)
[2023-05-29 00:51] LABS: THYROID STIMULATING HORMONE 1.265 uIU/ML (0.55-4.78)
[2023-05-29 00:56] LABS: AMPHETAMINES LEVEL URINE NEGATIVE (NEGATIVE); BARBITURATES URINE NEGATIVE (NEGATIVE)
[2023-05-29 00:57] LABS: BENZODIAZEPINES URINE NEGATIVE (NEGATIVE); CANNABINOIDS URINE NEGATIVE (NEGATIVE); METHADONE URINE NEGATIVE (NEGATIVE); OPIATES URINE NEGATIVE (NEGATIVE); PHENCYCLIDINE URINE NEGATIVE (NEGATIVE)
[2023-05-29 00:58] LABS: COCAINE METABOLITE URINE POSITIVE (NEGATIVE)
[2023-05-29] MEDS ORDERED: MED REC IN PROGRESS XX SCH (08:35)
[2023-05-29] MEDS ORDERED: MED REC CURRENTLY UNOBTAINABLE XX SCH (14:40)
[2023-05-30] MEDS ORDERED: MOM 30ML SUSPENSION UDC PO PRN (11:35)
[2023-05-30] MEDS ORDERED: IBUPROFEN 400MG TAB PO PRN (11:35)
[2023-05-30] MEDS ORDERED: traZODone 50 MG TAB PO PRN (11:35)
[2023-05-30] MEDS ORDERED: ACETAMINOPHEN TAB 650MG DOSE (2X325MG) PO PRN (11:35)
[2023-05-30] MEDS ORDERED: MAALOX 30 ML SUSP *UDC PO PRN (11:35)
[2023-05-30] MEDS: diphenhydrAMINE 25MG CAP PO PRN (15:47)
[2023-05-31] MEDS ORDERED: NICOTINE 21MG/24HR 1 EA TRANSDERMAL TD SCH (09:00)
[2023-05-31] MEDS ORDERED: NICO1PAT15 TD (09:02)
[2023-05-31] MEDS ORDERED: OLAN1TAB16 PO (09:02)
[2023-05-31] MEDS ORDERED: PROP10TA56 PO (09:02)
[2023-05-31] MEDS ORDERED: CITA40TA7 PO (09:02)
[2023-05-31] MEDS ORDERED: BACT800T5 PO (09:02)
[2023-05-31] MEDS ORDERED: OLAN5ZYD PO (09:02)
[2023-05-31] MEDS ORDERED: HOME MED LIST COMPLETE! XX SCH (09:05)
[2023-05-31] MEDS: diphenhydrAMINE 25MG CAP PO PRN (10:07)
[2023-05-31] MEDS ORDERED: LEVALBUTEROL HFA 45MCG/ACT 15GM INHALER INH PRN (12:35)
[2023-05-31] MEDS ORDERED: traZODone 100 MG TAB PO PRN ×2 (12:35→13:50)
[2023-05-31] MEDS: ASCORBIC ACID 500 MG TAB PO SCH (13:35)
[2023-05-31] MEDS: MULTIVITAMINS/MINERALS THERAP 1 TAB PO SCH (13:35)
[2023-05-31] MEDS: CitaloPRAM (CeleXA) 20 MG TAB PO SCH (13:35)
[2023-05-31] MEDS: PROPRANOLOL 10 MG TAB PO SCH ×2 (13:35→21:00)
[2023-05-31] MEDS: ATOMOXETINE HCL 40 MG CAP (STRATTERA) PO SCH (15:14)
[2023-05-31] MEDS: GABAPENTIN 300 MG CAP PO SCH ×2 (16:35→21:00)
[2023-05-31] MEDS: OLANZapine 5 MG TAB PO SCH (21:00)
[2023-06-01] MEDS: PROPRANOLOL 10 MG TAB PO SCH ×2 (10:03→21:25)
[2023-06-01] MEDS: MULTIVITAMINS/MINERALS THERAP 1 TAB PO SCH (10:03)
[2023-06-01] MEDS: GABAPENTIN 300 MG CAP PO SCH ×3 (10:03→21:25)
[2023-06-01] MEDS: CitaloPRAM (CeleXA) 20 MG TAB PO SCH (10:03)
[2023-06-01] MEDS: ATOMOXETINE HCL 40 MG CAP (STRATTERA) PO SCH (10:04)
[2023-06-01] MEDS: ASCORBIC ACID 500 MG TAB PO SCH (10:04)
[2023-06-01 18:28] VITALS: BP 108/74; TEMP 98.6; O2SAT 100
[2023-06-01] MEDS: OLANZapine 5 MG TAB PO SCH (21:25)
[2023-06-02 06:11] VITALS: BP 118/78; TEMP 98.3; O2SAT 96
[2023-06-02] MEDS: GABAPENTIN 300 MG CAP PO SCH ×3 (10:24→21:09)
[2023-06-02] MEDS: ASCORBIC ACID 500 MG TAB PO SCH (10:24)
[2023-06-02] MEDS: CitaloPRAM (CeleXA) 20 MG TAB PO SCH (10:24)
[2023-06-02] MEDS: MULTIVITAMINS/MINERALS THERAP 1 TAB PO SCH (10:25)
[2023-06-02] MEDS: ATOMOXETINE HCL 40 MG CAP (STRATTERA) PO SCH (10:25)
[2023-06-02] MEDS: PROPRANOLOL 10 MG TAB PO SCH ×2 (10:26→21:16)
[2023-06-02] MEDS: OLANZapine 5 MG TAB PO SCH (21:09)
[2023-06-03 05:51] VITALS: BP 116/79; TEMP 98.2; O2SAT 100
[2023-06-03 08:46] VITALS: BP 118/80
[2023-06-03] MEDS: PROPRANOLOL 10 MG TAB PO SCH (08:46)
[2023-06-03] MEDS: MULTIVITAMINS/MINERALS THERAP 1 TAB PO SCH (08:46)
[2023-06-03] MEDS: GABAPENTIN 300 MG CAP PO SCH (08:46)
[2023-06-03] MEDS: CitaloPRAM (CeleXA) 20 MG TAB PO SCH (08:46)
[2023-06-03] MEDS: ASCORBIC ACID 500 MG TAB PO SCH (08:46)
[2023-06-03] MEDS: ATOMOXETINE HCL 40 MG CAP (STRATTERA) PO SCH (08:46)
[2023-06-03] MEDS ORDERED: CITA40TA7 PO (10:34)
[2023-06-03] MEDS ORDERED: OLAN1TAB16 PO (10:34)
[2023-06-03] MEDS ORDERED: TRAZ-257 PO (10:34)
[2023-06-03] MEDS ORDERED: PROP10TA56 PO (10:34)
[2023-06-03] MEDS ORDERED: PRAZ1CAP PO (10:34)
[2023-06-03] MEDS ORDERED: ATOM40CA2 PO (10:34)
[2023-06-03] MEDS ORDERED: GABA-1171 PO (10:34)
== END 2023-06-03 11:01 | disposition home or self-care (01) | DRG 882 ==
LOC: M ED 23:40 → M ED INP 05-30 11:31 → M PSY 05-30 12:52
PROVIDERS: ADMIT Student in an Organized Health Care Education/Training Program; ATTEND Student in an Organized Health Care Education/Training Program
DX: F43.10 Post-traumatic stress disorder, unspecified (principal); B20 Human immunodeficiency virus [HIV] disease; D69.3 Immune thrombocytopenic purpura; R45.851 Suicidal ideations; J45.909 Unspecified asthma, uncomplicated; F17.290 Nicotine dependence, other tobacco product, uncomplicated; F90.9 Attention-deficit hyperactivity disorder, unspecified type; F32.9 Major depressive disorder, single episode, unspecified; B19.20 Unspecified viral hepatitis C without hepatic coma; F15.14 Other stimulant abuse with stimulant-induced mood disorder; R05.9 Cough, unspecified; F16.14 Hallucinogen abuse with hallucinogen-induced mood disorder; Z79.899 Other long term (current) drug therapy; Z88.0 Allergy status to penicillin